=== PATIENT | male | born 1930 | race Caucasian/White ===

== ENCOUNTER → 2016-11-19 | Outpatient (CLI) | payer BC ==
[~2016-11-19] MED LIST: ALBU1AER9 INH; CALC500C70 PO; CLR10 PO; FENT25DI2 TD; FERR325T51 PO; FSMD/70 PO; MAGN400T6 PO; OXYC-57 PO; PEDICHW34 PO; TORS20TA2 PO; VITAMIN B12 INJ INJ; WARF3TAB6 PO; WARF4TAB8 PO
[2016-11-19 18:10] LABS: BASO % 0.4 %; BASO ABS # 0.02 K/uL (0-0.2); COMPLETE YES; EOS % 2.5 %; HEMATOCRIT 34.5 % (42-52); IG% 0.2 %; LYMPH % 44.3 %; LYMPH ABS # 2.27 K/uL (1.2-3.4); MEAN CELL VOLUME 102.1 fL (80-100); MEAN CORPUSCULAR HEMOGLOBIN 33.4 pg (25-34); MEAN CORPUSCULAR HGB CONC 32.8 g/dl (32-36); MEAN PLATELET VOLUME 9.2 fL (7.4-10.4); NEUT % 45.6 %; PLATELET COUNT 151 K/uL (130-400); RED BLOOD COUNT 3.38 M/uL (4.7-6.1); WHITE BLOOD COUNT 5.12 K/uL (4.8-10.8)
[2016-11-19 18:25] LABS: ALT/SGPT 16 U/L (12-78); AST/SGOT 13 U/L (15-37); BLOOD UREA NITROGEN 26 mg/dl (7-18); BUN/CREATININE RATIO 16.5 (10-20); CALCIUM 8.8 mg/dl (8.5-10.1); CARBON DIOXIDE 31 mmol/L (21-32); CHLORIDE 105 mmol/L (98-107); GLUCOSE 97 mg/dl (70-99); POTASSIUM 4.1 mmol/L (3.5-5.1); SODIUM 142 mmol/L (136-145)
[2016-11-19 18:27] LABS: ALB/GLOB RATIO 0.8 (0.9-2); ALKALINE PHOSPHATASE 50 U/L (45-117)
== END | disposition home or self-care (01) ==
LOC: C.LABMFLN 10:24
PROVIDERS: ATTEND Family Medicine
DX: D64.9 Anemia, unspecified (principal); I48.0 Paroxysmal atrial fibrillation; R53.83 Other fatigue; M79.1 Myalgia

== ENCOUNTER → 2016-12-24 | Outpatient (CLI) | payer BC ==
[2016-12-24 18:04] LABS: BLOOD UREA NITROGEN 23 mg/dl (7-18); BUN/CREATININE RATIO 15.6 (10-20); CALCIUM 8.4 mg/dl (8.5-10.1); CARBON DIOXIDE 30 mmol/L (21-32); CHLORIDE 106 mmol/L (98-107); GLUCOSE 107 mg/dl (70-99); POTASSIUM 3.8 mmol/L (3.5-5.1); SODIUM 143 mmol/L (136-145)
== END | disposition home or self-care (01) ==
LOC: C.LABMFLN 09:35
PROVIDERS: ATTEND Family Medicine
DX: I25.10 Atherosclerotic heart disease of native coronary artery without angina pectoris (principal); I48.0 Paroxysmal atrial fibrillation

== ENCOUNTER → 2016-12-30 | Outpatient (CLI) | payer BC ==
[2016-12-30 18:07] LABS: BLOOD UREA NITROGEN 24 mg/dl (7-18)
== END | disposition home or self-care (01) ==
LOC: C.LABMFLN 13:20
PROVIDERS: ATTEND Surgery Vascular Surgery
DX: Z95.828 Presence of other vascular implants and grafts (principal); I71.4 Abdominal aortic aneurysm, without rupture

== ENCOUNTER → 2017-01-04 | Outpatient (CLI) | payer BC ==
[~2017-01-04] MED LIST changes: +OPTIRAY 320 IV PRN
--- NOTE | 2017-01-04 11:38 | DIAGNOSTIC IMAGING REPORT ---
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 COMPARISON STUDY: CT angiogram of the abdomen and pelvis dated 07/06/2016. TECHNIQUE: Before and following the IV administration of 118 cc of Optiray 320, CT angiogram of the abdomen and pelvis was performed from the lung bases the proximal femora. Images are reviewed in the axial, sagittal, and coronal planes. The examination is performed using the stent graft protocol. 3-D reformats and MIPS images are created and assessed. IV contrast was administered without complication. The examination is degraded by motion artifact. CT DOSE: 5203.28 mGy.cm FINDINGS: Lower chest: The heart is enlarged and without pericardial effusion. The coronary arteries are densely calcified. Emphysematous change is suspected. Again seen is a 4 mm mm right middle lobe pulmonary nodule on axial image #41. The lung bases are otherwise clear noting dependent atelectasis. Liver: The contrast-enhanced liver is normal in size, contour, and attenuation. There is mild central intrahepatic or ductal dilatation, likely related to previous cholecystectomy. The main portal veins appear patent. Gallbladder: Surgically absent noting clips in the gallbladder fossa. Spleen: Normal in size and attenuation noting heterogeneous arterial phase enhancement. Pancreas: Markedly atrophic and grossly unremarkable. Adrenal glands: Unremarkable. Kidneys: No renal calculi are identified on the unenhanced series. The contrast enhanced kidneys are atrophic and without hydronephrosis. The kidneys enhance symmetrically. Scattered subcentimeter cortical hypodensities likely represent cysts but are too small for definitive characterization. Abdominal aorta and iliac arteries: There is advanced atherosclerotic calcification of the abdominal aorta. There has been aortobiiliac stent graft repair of an infrarenal abdominal aorta aneurysm. The residual aneurysm sac measures 4.9 cm in AP diameter and 4.6 cm in transverse diameter. The stent is widely patent. A large endoleak is identified, best seen from images #213-248 of the arterial phase series. The majority of this is likely type II, related to lumbar vessels as seen on image #246 and the there is no clear evidence of inferior mesenteric artery seen on image #224. There is no clear evidence of type I or III endoleak. The iliac arteries are patent. 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 This is partially thrombosed. Calcific material is present within the common femoral vein bilaterally and may represent chronic thrombus. The vessels appear patent. Major branches of the abdominal aorta: The celiac trunk, superior mesenteric, and inferior mesenteric arteries are widely patent. The inferior mesenteric at the level of the stent graft and likely fills via retrograde flow. See above. Hepatic arterial anatomy is conventional. The splenic vein is patent. There is a single left renal artery and 2 right renal arteries. The renal arteries are patent bilaterally. Bowel: There are postoperative changes from right hemicolectomy with ileocolic anastomosis. The sigmoid colon is tortuous. No bowel obstruction is seen. There is colonic fecal retention. Peritoneum: There is no intraperitoneal free air or abdominal ascites. Lymphadenopathy: None. Pelvic viscera: Evaluation of the pelvis is degraded by streak artifact from orthopedic hardware in the left hip. The prostate gland is diminutive and heterogeneous. The bladder wall appears thickened and trabeculated suggesting the sequelae of chronic outlet obstruction. Pelvic phleboliths are identified. Omental collateral vessels are seen in the left pelvis. Skeletal structures: The skeletal structures are heterogeneously osteopenic. No lytic or blastic bony lesions are seen. There are mild compression deformities of T11, L1, L2, L3, and L4. There is advanced lumbosacral spondylosis. Degenerative change and sclerosis are seen involving the sacroiliac joints. Advanced arthritic changes also seen in the hips. Postoperative change and chronic posttraumatic deformity are noted in the left hip. IMPRESSION: 1. There are changes from aortobiiliac stent graft repair of an abdominal aortic aneurysm. The residual aneurysm sac measures 4.9 x 4.6 cm. 2. 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 3. Cardiomegaly and suspect emphysema. 4. Again seen is a 4 mm right middle lobe pulmonary nodule. 5. There are postoperative changes from right hemicolectomy and ileocolic anastomosis. No bowel obstruction is seen. Colonic fecal retention is noted. 6. 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 7. Calcific material is present within the common femoral veins bilaterally. The vessels appear patent and this may represent chronic nonocclusive thrombus. Consider bilateral lower extremity venous Doppler studies for further assessment. 8. Additional findings as above. Electronically signed by: Dajuan Dawn M.D. 01/04/2017 11:37 AM Dictated Date/Time: 01/04/2017 11:15 AM
== END ==
LOC: C.CTS 10:35
PROVIDERS: ATTEND Surgery Vascular Surgery
DX: I71.4 Abdominal aortic aneurysm, without rupture (principal); Z95.828 Presence of other vascular implants and grafts

== ENCOUNTER → 2017-01-22 | Outpatient (CLI) | payer BC ==
[~2017-01-22] MED LIST changes: +DRGTP12 TD; -OPTIRAY 320 IV PRN
== END | disposition home or self-care (01) ==
LOC: C.PATHSPEC 14:12
PROVIDERS: ATTEND Dermatology
DX: Z01.89 Encounter for other specified special examinations (principal)

== ENCOUNTER → 2017-01-25 | Outpatient (CLI) | payer BC ==
[2017-01-25 17:48] LABS: MEAN CELL VOLUME 101.7 fL (80-100); MEAN CORPUSCULAR HEMOGLOBIN 34.5 pg (25-34); MEAN CORPUSCULAR HGB CONC 33.9 g/dl (32-36); MEAN PLATELET VOLUME 9.2 fL (7.4-10.4); PLATELET COUNT 131 K/uL (130-400); RED BLOOD COUNT 3.54 M/uL (4.7-6.1); WHITE BLOOD COUNT 4.45 K/uL (4.8-10.8)
[2017-01-25 18:02] LABS: ALT/SGPT 17 U/L (12-78); BLOOD UREA NITROGEN 21 mg/dl (7-18); CARBON DIOXIDE 32 mmol/L (21-32); CHLORIDE 105 mmol/L (98-107); GLUCOSE 100 mg/dl (70-99); MAGNESIUM 2.3 mg/dl (1.8-2.4); POTASSIUM 3.9 mmol/L (3.5-5.1); SODIUM 143 mmol/L (136-145)
[2017-01-25 18:14] LABS: ALKALINE PHOSPHATASE 56 U/L (45-117); AST/SGOT 16 U/L (15-37); IMMUNOGLOBULN M 31.3 mg/dL (40-230); PHOSPHORUS 3.1 mg/dl (2.5-4.9)
[2017-01-25 18:19] LABS: EOSINOPHIL % 1.8 %; LYMPH ABS # 1.64 K/uL (1.2-3.4); LYMPHOCYTE % 36.8 %; NEUTROPHILS % 54.4 %; STOMATOCYTE 1+
[2017-01-25 18:34] LABS: MDIFF REQUEST DONE
--- NOTE | 2017-01-27 15:00 | CODING QUERY NO DIAGNOSIS ---
TREATMENT RENDERED WITHOUT A DIAGNOSIS To promote full compliance with coding requirements relating to patient care, physician participation is requested in all cases of lumber bearer uncertainty. Please assist us with providing a diagnosis/symptom for the test(s) below: A diagnosis/symptom was not documented on your Order. A valid diagnosis/symptom is required to bill all insurances. Please remember that we are unable to code a diagnosis of rule out, probable, possible, questionable, or suspected. Tests that require a diagnosis: DOS: 01/25/17 * CBC DIAGNOSIS: * LDH DIAGNOSIS: * [id number] DIAGNOSIS: * GAMMA GLUTAMYL TRANSPEPTIDASE DIAGNOSIS: * IMMUNOGLOBULIN G,A,M DIAGNOSIS: * LIVER PROFILE DIAGNOSIS: * MAGNESIUM DIAGNOSIS: * RENAL PROFILE DIAGNOSIS: Provider Signature: Date: Thank you [facility] Once completed, please kindly fax back to [phone] For questions please call [phone]
== END | disposition home or self-care (01) ==
LOC: C.LABMFLN 13:19
PROVIDERS: ATTEND Internal Medicine Hematology & Oncology
DX: E27.49 Other adrenocortical insufficiency (principal); C85.88 Other specified types of non-Hodgkin lymphoma, lymph nodes of multiple sites

== ENCOUNTER → 2017-07-30 | Day surgery (SDC) | payer BC ==
[~2017-07-30] VITALS: Ht 185.4 cm; Wt 93.5 kg
[2017-07-30] VITALS (12 sets, daily range): BP systolic 108–144; BP diastolic 56–91; PULSE 50–77; TEMP 36.7–36.9; O2SAT 95–98; Ht 185.4 cm; Wt 93.5 kg
[~2017-07-30] MED LIST changes: +CEFAZOLIN 1000MG/55 ML D5W IV SCH; +CEFAZOLIN IV 2,000 MG/60 ML D5W IV ONE; +FENTANYL CITRATE INJ 50 MCG/1 ML 2 ML VIAL IV ONE; +FENTANYL CITRATE INJ 50 MCG/1 ML 2 ML VIAL ONE; +HEPARIN SOD (PORCINE) 1000 UNIT/ML 10 ML VIAL ONE; +IODIXANOL (VISIPAQUE) 270 MG/ML 150ML XX ONE; +LIDOCAINE HCL 1% 20 ML VIAL INJ ONE; +MIDAZOLAM HCL 1 MG/ML 2ML VIAL IV ONE; +MIDAZOLAM HCL 1 MG/ML 2ML VIAL ONE; +OXYCODONE/ACETAMINOPHEN 5-325 TAB PO PRN; +SODIUM CHLORIDE 0.9% 1000ML IV SCH
--- NOTE | 2017-07-30 06:34 | History and Physical ---
History & Physical Date of Service Jul 30, 2017. History & Physical CC: Post PEVAR with endoleak HPI: The patient states that he himself has been doing essentially well since his last visit here 6 months ago and he denies any complaints at this time. He did undergo an ultrasound evaluation which has redemonstrated the large endoleak , which had been noted on previous CT scans. The size of his aneurysm measuring is 4.9 cm, previously it was measuring 4.8 to 4.9 cm, [address] PAST MEDICAL HISTORY: Significant for anemia, abdominal aortic aneurysm, atrial fibrillation, chronic rhinitis, osteoporosis, peripheral neuropathy, chronic venous insufficiency, spinal stenosis and B12 deficiency. PAST SURGICAL HISTORY: Significant for ex lap with a colectomy, appendectomy, cholecystectomy and a sallie placed in his left femur in July. SOCIAL HISTORY: He will smoke an occasional cigar. He has a past history of cigarette smoking while he was in the . He quit in 1951. Nondrinker. No illicit substances. He has no known drug allergies. Current medications include warfarin, alendronate sodium 70 mg p.o. weekly, Nasonex, torsemide 40 mg daily, fentanyl 25 mcg transdermal patch, Percocet 5/ 325, take 1-2 tabs every 4 hours p.r.n. pain, cyanocobalamin 1000 mcg q. 3 months, calcium plus vitamin D, multivitamin, Colace, iron, magnesium oxide and ProAir HFA inhale 2 puffs q. 4 hours p.r.n. PHYSICAL EXAMINATION: His weight is 91 kilograms, he is satting 96% on room air , heart rate 78, blood pressure is 108/50 in his right arm and 124/84 in his left arm. This is an 85-year-old male who looks his stated age in no acute distress. Head is normocephalic, atraumatic. Extraocular movements are intact. Sclerae nonicteric. Neck is supple. He does not have a carotid bruit. His heart is regular rate and rhythm. Lungs are clear to auscultation bilaterally. Abdomen is soft, nontender, nondistended. There is a well-healed midline incision scar without any evidence of hernia. He has palpable radial and bilateral femoral pulses. His feet are warm and pink. He does not have distal palpable pulses. Impression: Endoleak of aneurysm sac Plan: Patient is admitted for an abdominal aortogram. I have discussed the risks options and benefits of the procedure with the patient. The patient understands the risks options and benefits and agrees to the procedure.
[2017-07-30 11:10] LABS: INR 2.7 (0.9-1.1); PARTIAL THROMBOPLASTIN RATIO 1.5; PROTHROMBIN TIME (PATIENT) 29.7 SECONDS (9.0-12.0)
[2017-07-30 11:42] LABS: BLOOD UREA NITROGEN 18 mg/dl (7-18)
--- NOTE | 2017-07-30 13:43 | Procedure Note ---
Pre-Mod Sedation Assessment General Date of Moderate Sedation: Jul 30, 2017. Vital Signs: Vital Signs Past 12 Hours Date Time Temp Pulse Resp B/P (MAP) Pulse Ox O2 Delivery O2 Flow Rate FiO2 07/30/17 11:00 36.9 77 20 108/70 (83) 95 Room Air Pre-Sedation Airway Assessment Smoking Status: Light Tobacco Smoker Mallampati Classification: Class I ASA Classification: Class III Notes The planned sedation has been discussed with the patient and consent obtained. I have identified the patient, determined the appropriateness of sedation and have assessed the patient immediately prior to the procedure. All medicine(s) and interventions are by my order.
--- NOTE | 2017-07-30 14:37 | Discharge Instructions ---
Discharge Instructions Date of Service Jul 30, 2017. Visit Reason for Visit: S/P Pevar, Ends Leak Discharge Discharge Diagnosis / Problem: Type II endoleak Discharge Goals Goal(s): Diagnostic testing Activity Recommendations Activity Limitations: per Instructions/Follow-up section Anesthesia . Post Anesthesia Instructions: If you have had General Anesthesia or IV Sedation: * Do not drive today. * Resume driving when surgeon permits. * Do not make important decisions or sign legal documents today. * Call surgeon for: 1. Temperature elevations greater than 101 degrees F. 2. Uncontrollable pain. 3. Excessive bleeding. 4. Persistent nausea and vomiting. 5. Medication intolerance (nausea, vomiting or rash). * For nausea and vomiting use only clear liquids such as: tea, soda, bouillon until nausea subsides, then gradually increase diet as tolerated. * If you have any concerns or questions, call your surgeon's office. If physician is unavailable and it is an emergency, call 911 or go to the nearest emergency room. . Instructions / Follow-Up Instructions / Follow-Up Call [phone] to schedule a follow up appointment if one not already scheduled. SPECIAL CARE INSTRUCTIONS: Medications: * Continue to take your medications as directed. If you have been given a prescription for Plavix, please fill it immediately and take as directed. Incision Care: * Your puncture site may have some bruising and minor swelling for about one week. * You will have a small dressing covering your puncture site. You may remove the dressing after 24 hours and shower. You may let the warm soapy water run over it, but be sure to dry the puncture site well and keep it dry. * DO NOT IMMERSE THE INCISION IN A TUB/POOL/etc. UNTIL HEALED. * Puncture sites should be kept covered with a band-aid until it begins to heal. Restrictions: * Depending on whether you leg or arm was punctured to access the arteries, you will be required to lay flat, hold your arm still, or both, for about 4 hours after the procedure to prevent bleeding. * Limit your activity for the first 48 hours. You may walk and go up and down steps. Avoid excessive bending or movement at the puncture site. Possible Complications: * Excessive Swelling - after blood flow is improved you may notice increased swelling in the lower legs. This is a normal response. This usually depends on the amount of blockages in the leg, how long they have been there prior to your procedure and how much blood flow was restored. Elevating your legs will help to improve this. Please notify our office ([phone] ) if the swelling does not go away after lying in bed overnight. * Infection/Drainage/Bleeding - Drainage or bleeding from the puncture site should be minimal. If you have excessive bleeding or drainage, call our office ([phone]) right away. * Pain - You may experience some mild pain or soreness at your puncture site. If your pain does not improve, please contact our office ([phone]). Call your doctor and seek emergent treatment if you develop: * Temperature above 101 degrees * Any fever or chills * Any redness or purulent drainage from the puncture site * Any new dusky/blue colored toes or feet with coolness or sharp or aching pain. SKIN IRRITATION: * You may experience some redness and/or swelling in the area where radiation was administered. If any skin irritation occurs, please contact your family physician. FOLLOW UP VISIT: Keep any scheduled doctor appointments. Diet Recommendations Recommended Home Diet: resume previous diet Procedures Procedures Performed: Aortagram Mechanical Closure of Bilateral Femroal Artery Moderate Sedation Pending Studies Studies pending at discharge: no Medical Emergencies . Who to Call and When: Medical Emergencies: If at any time you feel your situation is an emergency, please call 911 immediately. . Non-Emergent Contact Non-Emergency issues call your: Surgeon . . "Provider Documentation" section prepared by Pierre Campos. .
--- NOTE | 2017-07-30 14:48 | [facility] Operative Report ---
Operative Report Operative Date Jul 30, 2017. Pre-Operative Diagnosis Endoleak of aneurysm sac Post-Operative Diagnosis Type II endoleak Procedure(s) Performed Aortagram Mechanical Closure of Bilateral Femroal Artery Moderate Sedation 1404 - 1444 Surgeon Andres Stonecutter Surgeon(s) None Estimated Blood Loss 5 Findings Type II endoleak Specimens None Anesthesia Local with sedation Complication(s) None Disposition Indications This is a an 87-year-old white male with a endograft in place from an endovascular aneurysm repair which was done in 2016. He has a known endoleak. The sac however has appeared to have gotten larger on CAT scan. He is admitted at this time for arteriography to better define the type of endoleak. I have discussed the risks options and benefits of the procedure with the patient. The patient understands the risks options and benefits and agrees to the procedure. Description of Procedure Patient was taken to the Angio suite and placed in a supine position. After both groins are prepped and draped in a sterile manner local anesthetic was administered to the right groin. A percutaneous puncture was made of the right common femoral artery and an 035 wire was inserted. A 5 Azeri sheath was inserted over the wire. An 035 Glidewire was then passed up in a retrograde fashion to the aorta above the endograft. A pigtail was inserted over the wire and the wire removed. Aortography was performed. This showed no evidence of type I endoleak however there was pooling of contrast in the lower part of the aneurysm sac. We then pulled the catheter down into the main body of the graft and did another injection. The same results were seen. The pigtail was removed and using an 035 wire and a rim catheter the right internal iliac was cannulated. Hand injection was performed. There is no collaterals seen going up into the aneurysm sac. Local anesthetic was then administered to the left groin. A percutaneous puncture was made a left common femoral artery an 035 wire was inserted, followed by a 5 Azeri sheath. Using a rim catheter and the 035 guidewire again the left internal iliac artery was cannulated. A large branch coming off the internal iliac artery was seen just beyond its origin. This branch went up into the retroperitoneum and filled the sac showing a type II endoleak. Due to the amount of contrast that was given today we decided to to go to cannulate this branch at this time. Consideration will be given to try to cannulate and embolize the branch of the internal iliac artery on left side in the future. Both groins were then closed with the Star closure device. Adequate hemostasis was noted. Sterile dressings were applied to the wounds and the patient left the Angio suite in good condition and tolerated the procedure well. I attest to the content of the Intraoperative Record and any orders documented therein. Any exceptions are noted below.
--- NOTE | 2017-07-30 14:49 | Procedure Note ---
Post-Moderate Sedation Plan General Date of Moderate Sedation Jul 30, 2017. Vital Signs: Vital Signs Past 12 Hours Date Time Temp Pulse Resp B/P (MAP) Pulse Ox O2 Delivery O2 Flow Rate FiO2 07/30/17 14:32 59 18 118/68 100 Nasal Cannula 2 07/30/17 11:00 36.9 77 20 108/70 (83) 95 Room Air Review - Discharge Plan Post Moderate Sedation Plan: On clinical assessment, the patient appears to have tolerated the conscious sedation without complications. Patient is recovering as anticipated. Patient will continue to be monitored by nursing and may be discharged when conscious sedation discharge criteria are met.
== END | disposition home or self-care (01) ==
LOC: C.ACU 10:11
PROVIDERS: ATTEND Surgery Vascular Surgery
DX: T82.898A Other specified complication of vascular prosthetic devices, implants and grafts, initial encounter (principal); Y83.2 Surgical operation with anastomosis, bypass or graft as the cause of abnormal reaction of the patient, or of later complication, without mention of misadventure at the time of the procedure; I71.4 Abdominal aortic aneurysm, without rupture; I48.91 Unspecified atrial fibrillation; M81.0 Age-related osteoporosis without current pathological fracture; G62.9 Polyneuropathy, unspecified; Z90.49 Acquired absence of other specified parts of digestive tract; Z87.891 Personal history of nicotine dependence

== ENCOUNTER → 2017-08-12 | Outpatient (CLI) | payer BC ==
[~2017-08-12] MED LIST changes: -CEFAZOLIN 1000MG/55 ML D5W IV SCH; -CEFAZOLIN IV 2,000 MG/60 ML D5W IV ONE; -CLR10 PO; -FENT25DI2 TD; -FENTANYL CITRATE INJ 50 MCG/1 ML 2 ML VIAL IV ONE; -FENTANYL CITRATE INJ 50 MCG/1 ML 2 ML VIAL ONE; -HEPARIN SOD (PORCINE) 1000 UNIT/ML 10 ML VIAL ONE; -IODIXANOL (VISIPAQUE) 270 MG/ML 150ML XX ONE; -LIDOCAINE HCL 1% 20 ML VIAL INJ ONE; -MIDAZOLAM HCL 1 MG/ML 2ML VIAL IV ONE; -MIDAZOLAM HCL 1 MG/ML 2ML VIAL ONE; -OXYCODONE/ACETAMINOPHEN 5-325 TAB PO PRN; -SODIUM CHLORIDE 0.9% 1000ML IV SCH
[2017-08-12 17:54] LABS: BASO % 0.2 %; BASO ABS # 0.01 K/uL (0-0.2); COMPLETE YES; EOS % 3.4 %; HEMATOCRIT 34.4 % (42-52); IG% 0.2 %; LYMPH % 42.5 %; LYMPH ABS # 2.14 K/uL (1.2-3.4); MEAN CELL VOLUME 102.7 fL (80-100); MEAN CORPUSCULAR HGB CONC 33.1 g/dl (32-36); MEAN PLATELET VOLUME 9.1 fL (7.4-10.4); MONO % 7.6 %; NEUT % 46.1 %; PLATELET COUNT 160 K/uL (130-400); RED BLOOD COUNT 3.35 M/uL (4.7-6.1); WHITE BLOOD COUNT 5.03 K/uL (4.8-10.8)
[2017-08-12 18:18] LABS: ALT/SGPT 17 U/L (12-78); AST/SGOT 24 U/L (15-37); BLOOD UREA NITROGEN 18 mg/dl (7-18); BUN/CREATININE RATIO 14.1 (10-20); CALCIUM 8.7 mg/dl (8.5-10.1); CARBON DIOXIDE 28 mmol/L (21-32); CHLORIDE 106 mmol/L (98-107); CREATININE 1.28 mg/dl (0.60-1.40); GLUCOSE 85 mg/dl (70-99); MAGNESIUM 2.4 mg/dl (1.8-2.4); POTASSIUM 3.9 mmol/L (3.5-5.1); SODIUM 142 mmol/L (136-145)
[2017-08-12 18:25] LABS: ALB/GLOB RATIO 0.8 (0.9-2); ALKALINE PHOSPHATASE 56 U/L (45-117); CHOLESTEROL 118 mg/dl (0-200); CHOLESTEROL/HDL RATIO 1.9; HDL CHOLESTEROL 61 mg/dl; LDL CHOLESTEROL CALCULATED 37 mg/dl; TRIGLYCERIDES 98 mg/dl (0-150); VERY LOW DENSITY LIPOPROT CALC 20 mg/dl
== END | disposition home or self-care (01) ==
LOC: C.LABMFLN 14:56
PROVIDERS: ATTEND Family Medicine
DX: E53.8 Deficiency of other specified B group vitamins (principal); D64.9 Anemia, unspecified; I48.0 Paroxysmal atrial fibrillation; I25.10 Atherosclerotic heart disease of native coronary artery without angina pectoris

== ENCOUNTER → 2017-08-19 | Outpatient (CLI) | payer BC | END | disposition home or self-care (01) | LOC: C.PATHSPEC 16:19 | PROVIDERS: ATTEND Dermatology | DX: C44.311 Basal cell carcinoma of skin of nose (principal) ==

== ENCOUNTER → 2017-09-01 | Outpatient (CLI) | payer BC | END | disposition home or self-care (01) | LOC: C.PATHSPEC 16:39 | PROVIDERS: ATTEND Dermatology | DX: C44.311 Basal cell carcinoma of skin of nose (principal) ==

== ENCOUNTER → 2018-02-11 | Outpatient (CLI) | payer BC ==
[2018-02-11 18:08] LABS: HEMATOCRIT 34.8 % (42-52); HEMOGLOBIN 11.3 g/dL (14.0-18.0); MEAN CORPUSCULAR HEMOGLOBIN 33.4 pg (25-34); MEAN CORPUSCULAR HGB CONC 32.5 g/dl (32-36); MEAN PLATELET VOLUME 9.4 fL (7.4-10.4); PLATELET COUNT 137 K/uL (130-400); RED CELL DISTRIBUTION WIDTH CV 14.6 % (11.5-14.5); RED CELL DISTRIBUTION WIDTH SD 55.2 fL (36.4-46.3); WHITE BLOOD COUNT 5.17 K/uL (4.8-10.8)
[2018-02-11 18:31] LABS: ALBUMIN 3.2 gm/dl (3.4-5.0); ALT/SGPT 19 U/L (12-78); BLOOD UREA NITROGEN 22 mg/dl (7-18); CALCIUM 8.5 mg/dl (8.5-10.1); CARBON DIOXIDE 29 mmol/L (21-32); CHOLESTEROL 111 mg/dl (0-200); CREATININE 1.46 mg/dl (0.60-1.40); GLUCOSE 89 mg/dl (70-99); POTASSIUM 3.7 mmol/L (3.5-5.1); SODIUM 141 mmol/L (136-145)
[2018-02-11 18:33] LABS: ALKALINE PHOSPHATASE 55 U/L (45-117); AST/SGOT 22 U/L (15-37); LDL CHOLESTEROL CALCULATED 35 mg/dl; TOTAL PROTEIN 7.3 gm/dl (6.4-8.2)
[2018-02-11 18:34] LABS: BASO % 0.2 %; BASO ABS # 0.01 K/uL (0-0.2); EOS % 3.7 %; EOS ABS # 0.19 K/uL (0-0.5); IG# 0.01 K/uL (0.00-0.02); LYMPH % 56.5 %; LYMPH ABS # 2.92 K/uL (1.2-3.4); MONO % 6.2 %; MONO ABS # 0.32 K/uL (0.11-0.59); NEUT % 33.2 %; NEUT ABS # 1.72 K/uL (1.4-6.5)
== END | disposition home or self-care (01) ==
LOC: C.LABMFLN 14:45
PROVIDERS: ATTEND Family Medicine
DX: E53.8 Deficiency of other specified B group vitamins (principal); D64.9 Anemia, unspecified; I48.0 Paroxysmal atrial fibrillation; M81.0 Age-related osteoporosis without current pathological fracture; I25.10 Atherosclerotic heart disease of native coronary artery without angina pectoris